=== PATIENT | male | born 1995 | race African-American/Black ===

== ENCOUNTER 2023-11-10 21:33 | Emergency (ER) | payer SELFPAY ==
[2023-11-10 21:40] VITALS: BP 121/74; PULSE 84; RESP 18; TEMP 37.2; O2SAT 99; BMI 23.6
--- NOTE | 2023-11-10 22:23 | ED_ITS ---
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 He is concerned because he has a corneal transplant patient. The eye irritation was painful enough that he had a difficult time keeping his eyes open. He left work and went home and removed his contacts and comes in because of the severity of his eye pain. He has excess tearing but no purulent drainage. He puts prednisolone drops in every day prior to putting his contacts in. His transplant was done at the [facility]. He has had no fevers or chills. His nose has been runny. He was not exposed to any unusual chemicals. He did not get anything in his eye at work. Review of Systems Narrative: Review of systems is outlined above otherwise noted to be negative. [facility] Surgical History (Updated 11/10/23 @ 22:36 by Yosef Buchanan RN) No significant past surgical history History of corneal transplant ?Z94.7 - Corneal transplant status (ICD-10) Social History Smoking Status: Never smoker Second hand tobacco smoke exposure: No How often do you have a drink containing alcohol: never AUDIT-C Alcohol total score: 0 Non-prescribed substance use: denies use Exam Narrative: Exam Narrative: Initially he is seated in a dark room and is very light sensitive. After placement of tetracaine drops I was able to examine him. He has some redness and irritation of both eyes. Fluorescein staining does not show any specific areas of increased uptake. There is no purulent drainage. Extraocular movements are full. Sutures are still evident in his left eye and apparently these are being removed slowly over the course of months. No sign of corneal ulceration or abrasion. He believes that his vision is normal once the eye was numbed. Const: Vital Signs, click to edit/add: Vital Signs - 24 hr 11/10/23 21:40 11/10/23 22:36 11/10/23 22:37 Temperature 99.0 F 99.0 F 99.0 F Pulse Rate [Right Pulse Oximeter] 84 79 79 Respiratory Rate 18 18 18 Blood Pressure [Ri ght Upper Arm] 121/74 118/68 118/68 Pulse Oximetry 99 99 Oxygen Delivery Me thod Room Air Room Air Course Course ED Course: Patient seen and examined. He is much more comfortable after the topical anesthetic drops were placed. We had a good discussion regarding the importance of contacting his eye provider in the morning to see if they have any other instructions. We will prophylactically put him on gentamicin drops and he can continue his prednisolone drops. He and his girlfriend were comfortable with this plan. Vital Signs Vital signs: Initial Vital Signs Temperature 99.0 F 11/10/23 21:40 Temperature Source Temporal Artery Scan 11/10/23 21:40 Pulse Rate 84 11/10/23 21:40 Respiratory Rate 18 11/10/23 21:40 Blood Pressure 121/74 11/10/23 21:40 Blood Pressure Mean 89 11/10/23 21:40 Blood Pressure Position Sitting 11/10/23 21:40 Pulse Oximetry 99 11/10/23 21:40 Oxygen Delivery Method Room Air 11/10/23 21:40 Vital Signs Temperature 99.0 F 11/10/23 21:40 Pulse Rate 84 11/10/23 21:40 Respiratory Rate 18 11/10/23 21:40 Blood Pressure 121/74 11/10/23 21:40 Pulse Oximetry 99 11/10/23 21:40 Oxygen Delivery Method Room Air 11/10/23 21:40 Temperature 99.0 F 11/10/23 22:37 Pulse Rate 79 11/10/23 22:37 Respiratory Rate 18 11/10/23 22:37 Blood Pressure 118/68 11/10/23 22:37 Pulse Oximetry 99 11/10/23 22:36 Oxygen Delivery Method Room Air 11/10/23 22:36 Discharge Plan Discharge Clinical Impression: Corneal irritation Patient Disposition: Home, Self-Care Condition: Stable Additional Instructions: Gentamicin 2 drops each eye every 4 hours. Continue your daily Prednisolone drops. Tylenol or Ibuprofen for pain. Contact your eye doctor in the morning. No contacts until cleared by eye doctor. Stand Alone Forms: [employer] Info Instructions
[2023-11-10 22:36] VITALS: BP 118/68; PULSE 79; RESP 18; TEMP 37.2; O2SAT 99
--- OUTSIDE RECORDS SUMMARY | 2023-11-10 22:36 | XMS_ITS | Encounter Summary ---
Author Organization [facility] Address [address] [place] [address]. [place] [address] Care Team Providers Care Packaging Designer Name Role Phone Angélica Zaragoza MD Primary Care Provider [phone] Thony Dick PA-C Unavailable [phone] Baltazar De Leon MD Unavailable [phone] Ryan Roe MD Unavailable [phone] Thony Dick PA-C Unavailable [phone] Sydnie Jurado OD Unavailable [phone] Shari Gonzalez MD Unavailable [phone] Encounter Details Date Type Department Care Team (Late st Contact Info) Description 08/09/2021 Ophth Exam [facility] Services - Eye Care Service Line [address] [place] [phone] Shashi Leach MD [address] [place] [address] Social History Tobacco Use Types Packs/Day Years Used Date Smoking Tobacco: Light Smoker Smokeless Tobacco: Never Comments:Occasional vaping Alcohol Use Standard Drinks/Week Comments Yes 0 (1 standard drink = 0.6 oz pur e alcohol) rarely PHQ-2 Answer Date Recorded PHQ-2 Score 0 08/11/2021 Sex and Gender Information Value Date Recorded Sex Assigned at Not on file Gender Identity Not on file Sexual Orientation Not on file COVID-19 Exposure Response Date Recorded In the last 10 days, have yo u been in contact with someone who was confirmed or suspected to have Coronavirus/COVID-19? No / Unsure 08/11/2021 9:53 AM CDT documented as of this encounter Plan of Treatment Upcoming Encounters Date Type Department Care Team (Late st Contact Info) Description 12/28/2023 12:30 PM CDT Office Visit [address] [place] [address] Shari Gonzalez MD [address] [place] [address] [phone] documented as of this encounter Visit Diagnoses Not on filedocumented in this encounter Care Teams Packaging Designer Relationship Specialty Start Date End Date [place] [address] [place] [address] PCP - General Internal Medicine 05/05/14 Thony Dick PA-C [address] [place] [address] Assigned PCP 04/06/20 09/25/21 Baltazar De Leon MD [address] [place] [address] Assigned Surgical Provider 08/22/21 Ryan Roe MD [address] [place] [address] Assigned PCP 09/26/21 02/11/23 Thony Dick PA-C [address] [address] [address] Assigned PCP 02/12/23 04/28/23 Sydnie Jurado OD [address] [facility] [address] [place], [place] [address] Optometry 10/13/23 Shari Gonzalez MD [address] [place], [place] 0770[address] Physician Ophthalmology 10/13/23 documented as of this encounter
--- OUTSIDE RECORDS SUMMARY | 2023-11-10 22:36 | XMS_ITS | Clinical Summary ---
Author Organization [facility] Address [address] [place] [address] Care Team Providers Care Director Of Nuclear Medicine Name Role Phone Angélica Zaragoza MD Primary Care Provider [phone] Baltazar De Leon MD Unavailable Sydnie Jurado OD Unavailable Shari Gonzalez MD Unavailable [phone] Allergies Active Allergy Reactions Criticality Noted Date Comments Dust Mites 03/25/2020 Mold 03/25/2020 Sulfa Antibiotics Rash Low 05/01/2014 Medications Medication Sig Dispensed Refills Start Date End Date Status ibuprofen (ADVIL/MOTRIN) 200 MG tablet Take 200 mg by mouth every 4 hours as needed Active acetaminophen (TYLENOL) 500 MG tablet Take 500-1,000 mg by mouth every 6 hours as needed Active vitamin C (ASCORBIC ACID) 1000 MG TABS Take 1,000 mg by mouth daily Active sodium chloride 0.9 % neb solutionIndications:Pos t corneal transplant,Irregular astigmatism of both eyes 3 mLs by Other route 2 times daily 300 mL 11 07/06/2023 Active prednisoLONE acetate (PRED FORTE) 1 % ophthalmic suspensionIndications:P ostsurgical state, eye Place 1 drop Into the left eye daily 10 mL 11 07/06/2023 Active Hospital, Clinic, or Other Facility Administered Medication Ordered Dose Route Frequency Start Date End Date Status vancomycin (VANCOCIN) 25 mg/mL in hypromellose compounded ophthalmic solution 1 drop 1 drop LEFT EYE EVERY HOUR 08/09/2021 Active Active Problems Problem Noted Date Diagnosed Date 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 Overview: Added automatically from request for surgery [id number] Anxiety 06/13/2014 Immunizations Name Administration Dates Next Due DT (PEDS <7y) 07/18/1999 DTP-Hib 07/26/1995, 5,1994,1994, 1994 HPV9 03/25/2020 Hepatitis B, Peds 02/23/1995,1994,06/23/18 95 Influenza (IIV3) PF 02/12/2003,01/23/2002 Influenza Intranasal Vaccine 01/27/2010,01/08/20 08 MMR 07/20/1999,07/26/1995 Meningococcal ACWY (Menactra??) 09/29/2011,09/12 OPV, trivalent, live 1994,1994,06/23 Pneumococcal 23 valent 03/25/2020 Poliovirus, inactivated (IPV) 07/20/1999 TDAP Vaccine (Adacel) 10/26/2013,10/17/2006 Varicella 01/27/2010,07/26/1995 Family History * Patient is adopted Medical History Relation Comments Depression Brother Depression Sister Glaucoma No family hx of Macular Degeneration No family hx of Relation Status Comments Brother Alive Father Alive Mother Alive Sister Alive Social History Tobacco Use Types Packs/Day Years Used Date Smoking Tobacco: Light Smoker Smokeless Tobacco: Never Tobacco Cessation:Ready to Q uit: Not Asked; Counseling Given: Not Answered Comments:Occasional vaping Alcohol Use Standard Drinks/Week Comments Yes 0 (1 standard drink = 0.6 oz pur e alcohol) rarely PHQ-2 Answer Date Recorded PHQ-2 Score 0 04/19/2023 Adolescent Education Answer Date Record ed Getting School Help Needed Not on file 11/29 Sex and Gender Information Value Date Recorded Sex Assigned at Not on file Gender Identity Not on file Sexual Orientation Not on file Last Filed Vital Signs Vital Sign Reading Time Taken Comments Blood Pressure 115/71 08/26/2021 4:30 PM CDT Pulse 76 08/26/2021 4:30 PM CDT Temperature 36.9 ??C (98.5 ??F) 08/26/2021 4:30 PM CD T Respiratory Rate 16 08/26/2021 4:15 PM CDT Oxygen Saturation 96% 08/26/2021 4:30 PM CDT Inhaled Oxygen Concentration - - Weight 65.8 kg (145 lb) 08/26/2021 12:07 PM CDT Height 175.3 cm (5' 9) 08/26/2021 12:07 PM CDT Body Mass Index 21.41 08/26/2021 12:07 PM CDT Plan of Treatment Upcoming Encounters Date Type Department Care Team (Late st Contact Info) Description 12/28/2023 12:30 PM CDT Office Visit [facility] [address] [place] [phone] Shari Gonzalez MD [address] [place] [address] Health Maintenance Due Date Last Done Comments ADVANCE CARE PLANNING 1994 ANNUAL REVIEW OF HM ORDERS 1994 COVID-19 Vaccine (#1) 1999 HEPATITIS C SCREENING 2012 HPV IMMUNIZATION (2 - Risk male 3-dose series) 2020 03/25/2020 NICOTINE/TOBACCO CESSATION COUNSELING Q 1 YR 03/25/2021 03/25/2020, 10/04/2016 Pneumococcal Vaccine: Pediatrics (0 to 5 Years) and At-Risk Patients (6 to 64 Years) (2 of 2 - PCV) 03/25/2021 03/25/2020 YEARLY PREVENTIVE VISIT 03/25/2021 03/25/2020, 10/04 DTAP/TDAP/TD IMMUNIZATION (7 - Td or Tdap) 10/27/2023 10/26/2013, 10/17/2006, 07/26/1995, Additional history exists INFLUENZA VACCINE (#1) 2023 0, 01/08/2008, 02/12/2003, Additional history exists HEPATITIS B IMMUNIZATION Completed 995, 1994, 1994 MENINGITIS IMMUNIZATION Completed 09/29/2011, 09/12 HIV SCREENING Completed 10/04/2016 PHQ-2 (once per calendar year) Completed 04/19/2023, 03/30/2022, 09/29/2021, Additional history exists RSV MONOCLONAL ANTIBODY Aged Out No l onger eligible based on patient's age to complete this topic Medical Devices Implanted Type Area Swedger Device Identifier Shelf Expiration Date Model / Serial / Lot Eye Cornea Process Fee For [employer] - [id number] Od-C Implanted:Qty: 1 on 08/26/2021 by Baltazar De Leon MD at [facility] Lens/Eye Implant Left: Eye [facility] 09/06/2021 PROCESS FEE / OD-C / Procedures Procedure Name Priority Date/Time Associated Diagnosis Comments HIV ANTIGEN ANTIBODY COMBO Routine 10/04/2016 10:03 AM CDT Encounter for routine adult health examination without abnormal findings from Last 3 Months or Most Recently Relevant to Health Maintenance Results * HIV Antigen Antibody Combo (10/04/2016 10:03 AM CDT) HIV Antigen Antibody Combo Nonreactive HIV-1 p24 Ag & HIV-1/HIV-2 Ab Not Detected NR [facility] Blood specimen (specimen) 10/04/2016 10:03 AM CDT 10/04/2016 10:04 AM CDT Baltazar Roth Jr., MD LAB - BLOOD O RDERABLES [facility] [address] [place] [address] from Last 3 Months or Most Recently Relevant to Health Maintenance Care Teams Director Of Nuclear Medicine Relationship Specialty Start Date End Date Angé[place] [address] [address] [place], [place] [phone] PCP - General Internal Medicine 05/05/14 Baltazar De Leon MD [address] [address] Assigned Surgical Provider 08/22/21 Sydnie Jurado OD [address] [place] [phone] Optometry 10/13/23 Shari Gonzalez MD [address] [place] [address]335 Physician Ophthalmology 10/13/23
--- OUTSIDE RECORDS SUMMARY | 2023-11-10 22:36 | XMS_ITS | Referral Summary ---
Author Organization [facility] Address [address] [place] [address] Care Team Providers Care Fruit And Vegetable Parer Name Role Phone Angélica Zaragoza MD Primary Care Provider [phone] Baltazar De Leon MD Unavailable Sydnie Jurado OD Unavailable [phone] Shari Gonzalez MD Unavailable [phone] Allergies Active Allergy Reactions Criticality Noted Date [...] Overview: Added automatically from request for surgery [id number] Anxiety 06/13/2014 Immunizations Name Administration Dates Next Due DT (PEDS <7y) 07/18/1999 DTP-Hib 07/26/1995, 5,1994,1994, 1994 HPV9 03/25/2020 Hepatitis B, Peds 02/23/1995,1994,06/23/18 95 Influenza (IIV3) PF 02/12/2003,01/23/2002 Influenza Intranasal Vaccine 01/27/2010,01/08/20 08 MMR 07/20/1999,07/26/1995 Meningococcal ACWY (Menactra??) 09/29/2011,09/12 OPV, trivalent, live 1994,1994,06/23 Pneumococcal 23 valent 03/25/2020 Poliovirus, inactivated (IPV) 07/20/1999 TDAP Vaccine (Adacel) 10/26/2013,10/17/2006 Varicella 01/27/2010,07/26/1995 Social History Tobacco Use Types Packs/Day Years [...] Description 12/28/2023 12:30 PM CDT Office Visit [facility] - [address] Clin [address] [place] [address] Shari Gonzalez MD [address] [place] [address] Medical Devices Implanted Type Area Bag Shaker Device Identifier Shelf Expiration Date Model / Serial / Lot Eye Cornea Process Fee For [employer] - [id number] Od-C Implanted:Qty: 1 on 08/26/2021 by Baltazar De Leon MD at [facility] Lens/Eye Implant Left: Eye [facility] 09/06/2021 PROCESS FEE / OD-C [...] Ag & HIV-1/HIV-2 Ab Not Detected NR [facility] Blood specimen (specimen) 10/04/2016 10:03 AM CDT 10/04/2016 10:04 AM CDT Baltazar Roth Jr., MD LAB - BLOOD O RDERABLES [facility] [address] [place] [address] from Last 3 Months or Most Recently Relevant to Health Maintenance Care Teams Fruit And Vegetable Parer Relationship Specialty Start Date End Date [place] [address] [place] [address] PCP - General Internal Medicine 05/05/14 Baltazar De Leon MD [address] [address] Assigned Surgical Provider 08/22/21 Sydnie Jurado OD [address] [address] Optometry 10/13/23 Shari Gonzalez MD [address] [place] [address] Physician Ophthalmology 10/13/23
--- OUTSIDE RECORDS SUMMARY | 2023-11-10 22:36 | XMS_ITS | Encounter Summary ---
Author Organization [facility] Address [address] [place] [address] Care Team Providers Care Base Manager Name Role Phone Angélica Zaragoza MD Primary Care Provider [phone] Gonzalez Zhong MD, Baltazar Cristina Unavailable [phone] Gonzalez Zhong MD, Baltazar Cristina Unavailable [phone] Thony Dick PA-C Unavailable [phone] Baltazar De Leon MD Unavailable [phone] Ryan Roe MD Unavailable [phone] Thony Dick PA-C Unavailable [phone] Sydnie Jurado OD Unavailable [phone] Shari Gonzalez MD Unavailable [phone] Reason for Visit * Reason Onset Date Comments CD Outpatient 12/25/2012 cd eval Encounter Details Date Type Department Care Team ([facility] Contact Info) Description 12/25/2012 Telephone [facility]ake [address] [place] [phone] Generic, Behavioral IntakeMD CD Outpatient (cd eval) Social History Tobacco Use Types Packs/Day Years Used Date Smoking Tobacco: Never Assessed Sex and Gender Information Value Date Recorded Sex Assigned at Not on file Gender Identity Not on file Sexual Orientation Not on file documented as of this encounter Miscellaneous Notes * Telephone Encounter - Monie Torres - 12/25/2012 10:31 AM CDT Mother called re setting cd evaluation for son. 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 Possible alcohol abuse. Bens sent. Monie Torres documented in this encounter Plan of Treatment Upcoming Encounters Date Type Department Care Team (Late st Contact Info) Description 12/28/2023 12:30 PM CDT Office Visit [facility] [address] [place] [phone] Shari Gonzalez MD [address] [place] [address] documented as of this encounter Visit Diagnoses Not on filedocumented in this encounter Care Teams Base Manager Relationship Specialty Start Date End [place] [address] [place] [address] PCP - General Internal Medicine 05/05/14 Baltazar Roth Jr., MD [address] [place] [address] [id number] PCP - Assigned PCP 10/10/16 05/09/18 Baltazar Roth Jr., MD [address] [place] [address] 992532 Assigned PCP 10/10/16 10/06/19 Thony Dick PA-C [address] [place] [address] Assigned PCP 04/06/20 09/25/21 Baltazar De Leon MD [address] [phone] Assigned Surgical Provider 08/22/21 Ryan Roe MD [address] 814805 Assigned PCP 09/26/21 02/11/23 Thony Dick PA-C [address] [place] [address] Assigned PCP 02/12/23 04/28/23 Sydnie Jurado OD [address] 7234[address] Optometry 10/13/23 Shari Gonzalez MD [address] [place], [place] [phone] Physician Ophthalmology 10/13/23 documented as of this encounter
[2023-11-10 22:37] VITALS: BP 118/68; PULSE 79; RESP 18; TEMP 37.2
== END 2023-11-10 22:37 | disposition home or self-care (01) ==
LOC: ED 22:34
PROVIDERS: Emergency Provider Family Medicine
DX: S05.00XA Injury of conjunctiva and corneal abrasion without foreign body, unspecified eye, initial encounter (principal)
CPT/HCPCS: 99282; 99283; A9270